=== PATIENT | female | born 1970 | race American Indian/Alaskan Native ===

== ENCOUNTER 2018-09-11 09:42 | Outpatient (CLI) | payer OTHER | END 2018-09-11 09:43 | disposition home or self-care (01) | LOC: C.LAB 09:42 | DX: G35 Multiple sclerosis (principal) ==

== ENCOUNTER 2018-09-14 12:38 | Outpatient (CLI) | payer OTHER | END 2018-09-14 12:39 | disposition home or self-care (01) | LOC: C.MRIC 12:39 ==

== ENCOUNTER 2018-09-16 13:40 | Outpatient (CLI) | payer OTHER | END 2018-09-16 13:41 | disposition home or self-care (01) | LOC: C.MRIC 13:41 ==